=== PATIENT | male | born 1990 | race Caucasian/White ===

== ENCOUNTER 2025-02-28 12:36 | Emergency (ER) | payer MEDICAID ==
[~2025-02-28] VITALS: Ht 162.6 cm; Wt 86.0 kg
--- NOTE | 2025-02-28 18:07 | Physician Documentation ---
HPI ~ General Chief Complaint: Medication Request Stated Complaint: MED REQUEST Time Seen by MD: 16:56 Mode of Arrival: Ambulatory History of Present Illness HPI Comments Patient is seen today stating he needs a refill of the Lasix and potassium. Patient states he does not have a primary care provider and states his legs are swelling in his legs were always more fallen on the right side. Patient does admit to illicit drug use. Patient currently denies any chest pain or shortness of breath or abdominal pain or nausea, vomiting, diarrhea. Patient has no other concern or complaint at this time. Medication Reconciliation Allergies: Coded Allergies: erythromycin base (Verified Allergy, Unknown, 02/28/25) Review of Systems Constitutional: Denies: chills, fever, weakness Eyes: Denies: pain, blurred vision ENT: Denies: ear pain, nose pain, throat pain, mouth pain Respiratory: Denies: cough, shortness of breath Cardiovascular: Denies: chest pain, palpitations Gastrointestinal: Denies: abdominal pain, nausea, vomiting Genitourinary: Denies: burning, dysuria Male Genitalia: Denies: penile discharge, testicular pain Neurological: Denies: headache, dizziness Musculoskeletal: Denies: pain, swelling Integumentary: Denies: rash, lesions Allergic/Immunologic: Denies: hives, itching Hematologic/Lymphatic: Denies: no symptoms reported Psychiatric: Denies: depression, anxiety Physical Exam Physical Exam Vital Signs: Heart Rate: 83, Respiratory Rate: 18, BP: 160/107, Pulse Oximetry: 100, Weight: 86.000 Oxygen Flow Rate: 0 Physical Exam General: Awake and Alert, no acute distress. HEENT: Conjunctiva pink, Sclera clear, Mucus Membranes moist. Neck: Supple without masses and tenderness. Resp: Unlabored. Lungs clear to auscultation bilaterally. Heart: Regular Rate and rhythm, normal S1 and S2 without murmur, rub or gallop. Abdomen: Soft and non tender no organomegaly Extremities: No cyanosis,clubbing, patient does have bilateral lower extremity edema worse on the right side. Skin: Warm and Dry. Progress Results/Orders Results/Orders Vital Signs 02/28/25 02/28/25 02/28/25 12:49 16:17 16:18 Pulse 98 83 Resp 18 18 B/P (MAP) 128/71 160/107 (124) Pulse Ox 100 100 O2 Flow Rate 0 Medical Decision Making Findings Patient is seen today stating he needs a refill of the Lasix and potassium. Patient states he does not have a primary care provider and states his legs are swelling in his legs were always more fallen on the right side. Patient does admit to illicit drug use. Patient currently denies any chest pain or shortness of breath or abdominal pain or nausea, vomiting, diarrhea. Patient has no other concern or complaint at this time. Patient was given prescription for Lasix 40 mg one tab once a day for one month along with potassium tablets to be taken daily. Patient strongly advised to establish care with primary care provider. Return to ED with any worsening, concerning or changing symptoms. Departure Disposition: HOME / SELF CARE / HOMELESS Impression: Primary Impression: Bilateral lower extremity edema Condition: Stable Discharge Instructions: Medicine Refill at the Emergency Department Additional Instructions: Patient was given prescription for Lasix 40 mg one tab once a day for one month along with potassium tablets to be taken daily. Patient strongly advised to establish care with primary care provider. Return to ED with any worsening, concerning or changing symptoms. Referrals: NO PRIMARY CARE PROVIDER (PCP) Prescriptions Potassium Chloride (Klor-Con) 10 Meq Tab.prt.sr 1 TAB PO DAILY for 30 Days, #30 TAB Prov: AISHA BACA 02/28/25 Furosemide (LASIX) 40 Mg Tablet 1 TAB PO DAILY for 30 Days, #30 TAB 0 Refills Prov: AISHA BACA 02/28/25 Signature Scribe Signature: No scribe Attestation: No scribe AISHA BACA PAC Feb 28, 2025 18:07
[2025-02-28] MEDS ORDERED: POTA-192 PO (18:11)
[2025-02-28] MEDS ORDERED: FURO-149 PO (18:11)
[2025-02-28 18:27] VITALS: BP 169/106; PULSE 89; RESP 18; O2SAT 100
== END 2025-02-28 18:26 | disposition home or self-care (01) ==
LOC: ER 12:37
DX: R60.0 Localized edema (principal); Z76.0 Encounter for issue of repeat prescription; Z88.1 Allergy status to other antibiotic agents
CPT/HCPCS: 99284

== ENCOUNTER 2025-03-22 08:28 | Emergency (ER) | payer OTHER ==
[~2025-03-22] VITALS: Ht 182.9 cm; Wt 70.0 kg
[~2025-03-22 08:28] MED LIST: DIVA-76 PO; INSU100I57 SQ; LANTUS SUBCUT; PRAZ5CAP2 PO; SODI1TAB2 PO; ZIPR20CA12 PO; gabapentin capsule PO
[2025-03-22 08:40] VITALS: TEMP 98.3
--- NOTE | 2025-03-22 08:44 | ELECTROCARDIOGRAPH REPORT ---
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
[2025-03-22 09:20] LABS: MEAN PLATELET VOLUME 7.7 FL (7.4-10.4); RED CELL DISTRIBUTION WIDTH 15.5 % (11.5-14.5)
--- NOTE | 2025-03-22 09:25 | RADIOLOGY REPORT ---
CHEST RADIOGRAPH Indication: CP Technique: Single frontal view of the chest was obtained Comparison: DI CHEST,SINGLE VIEW on DOS: 03/13/25 FINDINGS: Lines and Tubes: None Lungs: No focal consolidation. Pleura: No effusion. No pneumothorax. Cardiomediastinal contours: Unremarkable Bones: No acute osseous abnormality. IMPRESSION: No acute cardiopulmonary disease.
[2025-03-22 09:33] LABS: CREATININE 1.71 MG/DL (0.60-1.10); PRO BRAIN NATRIURETIC PEPTIDE 174 PG/ML (0-125); TOTAL CARBON DIOXIDE 27.8 MMOL/L (24-32); eCRCL 59 ML/MIN; eGFR 46 ML/MIN
--- NOTE | 2025-03-22 09:50 | RADIOLOGY REPORT ---
EXAM: CT CT HEAD INDICATION: Syncope, head injury TECHNIQUE: CT of the head without intravenous contrast. Coronal and sagittal reformatted images are s ubmitted. Radiation Dose : 1. Head: CT Dose: CTDI volume is 65.7 mGy. Dose-length product is 1235.4 mGy*cm The dose indicators for CT are the volume Computed Tomography (CT) Dose Index (CTDIvol) and the Dose Length Product (DLP), and are measured in units of mGy and mGy-cm, respectively. These indicators are not patient dose, but values generated from the CT scanner acquisition factors. The report includes radiation exposure data for exposures received during this examination. All CT scans at this medical facility are performed using dose modulation techniques as appropriate to a performed exam including the following: Automated exposure control was utilized; adjustment of the MA and/or KV according to patient size; and use of iterative reconstruction technique. COMPARISON: CT CT HEAD on DOS: 03/13/25 FINDINGS: There is no evidence of acute intracranial hemorrhage, extra-axial collection, mass effect, midline s hift, herniation or hydrocephalus. CSF density structure in the left middle cranial fossa measuring 3.4 x 2.2 cm. The ventricles, sulci and cisterns are age appropriate. The gutierres-white differentiation is intact. The visualized paranasal sinuses and mastoid air cells are clear. Hazy density in the left vitreous body posterior to the ocular lens. No depressed calvarial fracture. The surrounding soft tissues are unremarkable. IMPRESSION: 1. No acute intracranial abnormality. 2. Stable 3.2 cm CSF density structure in the left middle cranial fossa probably reflecting a subarac hnoid cyst. 3. Hazy density in the vitreous body of the left eye. Correlation with ocular examination is recomme nded.
--- NOTE | 2025-03-22 11:07 | Physician Documentation ---
History of Present Illness ~ Chief Complaint: Syncope Stated Complaint: FALL/ HEAD INJURY Time Seen by MD: 08:51 Source: patient, EMS, EMS notes reviewed Mode of Arrival: EMS Exam Limitations: clinical condition HPI Chief Complaint: Passed out Caveat: Patient's mental status is altered Independent Historians: Paramedics History of Present Illness: Patient is a 35-year-old man who was staying at the [place] with his brother. Patient states that he was talking to his brother when he passed out falling and striking his head. Patient complains of a headache. History is limited because the patient is very somnolent. Patient denies drug use. Patient denies meth use. Patient states that he is tired because he did not sleep last night. When asked why he could not tell me. Review of systems: All systems were reviewed and are negative except for what is indicated in the history of present illness. Past Medical History: Bipolar illness Past Surgical History: Unknown Social History: Denies alcohol use, denies drug use, smokes tobacco Medications: Reviewed as documented Nursing Notes Allergies: Reviewed as documented in Nursing Notes Medication Reconciliation Allergies: Coded Allergies: erythromycin base (Verified Allergy, Unknown, 03/13/25) lithium (Verified Allergy, Unknown, 03/13/25) Uncoded Allergies: BENEDRYL (Allergy, Unknown, 03/13/25) Scheduled Divalproex Sodium DR* (Depakote DR*), 1 TAB PO BID, (Reported) Insulin Glargine,Hum.rec.anlog* (Lantus*), 40 UNITS SUBCUT BID Insulin Lispro (Insulin Lispro Jacques Kwikpen), SQ ACHS, (Reported) Prazosin HCl (Prazosin HCl), 1 CAP PO HS, (Reported) Sodium Chloride (SODIUM CHLORIDE tablet), 1 TAB PO QID, (Reported) Ziprasidone Hcl (Ziprasidone Hcl), 1 CAP PO BID, (Reported) [gabapentin capsule], 300 MG PO BID Discontinued Medications Furosemide (Lasix), 1 TAB PO DAILY, (Reported) Gabapentin (Gabapentin), 1 TAB PO QID, (Reported) Potassium Chloride (Potassium Chloride), 1 TAB PO DAILY, (Reported) Quetiapine Fumarate* (Seroquel*), 1 TAB PO HS, (Reported) Review of Systems All Other Systems at this time: Reviewed and Negative ROS Patient denies any other acute symptoms other than above. All other systems are negative Physical Exam Vital Signs: RN Vital Signs have been reviewed: Yes, Temperature: 98.3, Source: Oral, Heart Rate: 87, Respiratory Rate: 14, BP: 128/82, Pulse Oximetry: 95, Weight: 70.000 Oxygen Flow Rate: 0 Pulse Oximetry Reflects: adequate oxygenation Physical Exam General Appearance: No distress, sleeping, arousable, somnolent HEENT: Normal OP, moist oral mucosa, PERRL, EOMI, abrasions to the left forehead Neck: supple, normal ROM, trachea midline Pulmonary: No respiratory distress, CTA, BS equal Cardiac: RRR, no murmur, rub or gallop, GI: nondistended, soft, nontender, normal bowel sounds, no guarding, no rebound Extremities: normal ROM, no swelling, non-tender Skin: intact, dry, warm, no rashes Neuro: Somnolent, slurred speech, no focal motor weakness, moving all extremities Psych: Unable to assess, responds to questions appropriately Progress Results/Orders Results/Orders Orders - FERNANDEZ WICK MD Chest,Single View (03/22/25 08:38) Monitor (03/22/25 08:38) Saline Lock (03/22/25 08:38) Oxygen (03/22/25 08:38) Ct Head (03/22/25 09:25) Po Challenge (03/22/25 15:01) Gait Test (03/22/25 15:01) Completed Orders - FERNANDEZ WICK MD Chest,Single View (03/22/25 08:38) Cbc/Diff (03/22/25 08:38) BMP (03/22/25 08:38) PBNP (03/22/25 08:38) Electrocardiogram (03/22/25 08:38) Hs Troponin I W Calculations (03/22/25 08:38) Hs Troponin I W Calculations (03/22/25 10:38) Hs Troponin I W Calculations (03/22/25 11:38) Ct Head (03/22/25 09:25) Potassium Cl Sr Tablet (K-Dur Tablet) (03/22/25 11:00) Ringers Solution, Lacted (Lactated Ringe (03/22/25 11:00) Drug Screen, Urine (03/22/25 11:11) Valproate (03/22/25 08:59) Ethanol (03/22/25 08:59) Medications Received in ER Medications (Trade) Dose Ordered Sig/Misti Route PRN Reason Start Time Stop Time Status Last Admin Dose Admin (K-DUR tablet) 40 meq ONCE ONCE PO 03/22/25 11:00 03/22/25 11:01 DC 03/22/25 11:53 40 MEQ (lactated ringers solution) 1,000 ml ONCE ONCE IV 03/22/25 11:00 03/22/25 11:10 DC 03/22/25 11:53 1,000 ML Vital Signs 03/22/25 03/22/25 03/22/25 03/22/25 08:40 09:04 09:08 10:15 Temp 98.3 Pulse 89 92 87 Resp 15 13 14 B/P (MAP) 117/81 121/81 (94) 128/82 (97) Pulse Ox 97 98 95 O2 Flow Rate 0 0 0 03/22/25 03/22/25 13:28 14:50 Pulse 88 86 Resp 14 15 B/P (MAP) 114/76 (89) 129/79 (96) Pulse Ox 98 95 O2 Flow Rate 0 0 Laboratory Tests Test 03/22/25 08:59 03/22/25 10:57 03/22/25 11:48 03/22/25 14:47 White Blood Count 7.8 Red Blood Count 3.24 L Hemoglobin 9.1 L Hematocrit 26.5 L Mean Corpuscular Volume 81.7 Mean Corpuscular Hemoglobin 28.1 Mean Corpuscular Hemoglobin Concent 34.3 Red Cell Distribution Width 15.5 H Platelet Count 394 Mean Platelet Volume 7.7 Neutrophils (%) (Auto) 40.1 L Lymphocytes (%) (Auto) 39.7 Monocytes (%) (Auto) 15.4 H Eosinophils (%) (Auto) 4.0 Basophils (%) (Auto) 0.8 Neutrophils # (Auto) 3.2 Lymphocytes # (Auto) 3.1 Monocytes # (Auto) 1.2 H Eosinophils # (Auto) 0.3 Basophils # (Auto) 0.1 CBC Comment Sodium Level 133 L Potassium Level 3.2 L Chloride Level 97 L Carbon Dioxide Level 27.8 Anion Gap 8 Blood Urea Nitrogen 33 H Creatinine 1.71 H Estimated GFR/1.73 m2 46 BUN/Creatinine Ratio 19.3 Glucose Level 273 H Calcium Level 7.4 L Troponin I High Sensitivity 7 7 8 Pro-B-Type Natriuretic Peptide 174 H Albumin 2.1 L Chemistry Comments Valproic Acid (Depakene) Level 29 L Ethyl Alcohol Level < 10 Troponin I High Sens Percent Delta 0 14 Troponin I Hi Sens Absolute Change 0 1 Urine Opiates Screen Negative Urine Methadone Screen Negative Urine Fentanyl Screen Negative Urine Barbiturates Screen Negative Urine Phencyclidine Screen Negative Urine Amphetamines Screen Positive Urine Benzodiazepines Screen Negative Urine Cocaine Screen Negative Urine Cannabinoids Screen Negative Drug Screen Comment Medical Decision Making Findings Differential diagnosis includes but is not limited to: EKG independent interpretation: Performed at 8:43 a.m.. Normal sinus rhythm, heart rate 88, normal axis, normal ST segments Chest x-ray, single view, indication: Syncope Independent interpretation: Lungs are clear, normal mediastinum, normal cardiac silhouette, no acute cardiopulmonary process. Head CT without IV contrast, indication: Trauma, syncope Impression: 1. No acute intracranial abnormality. 2. Stable 3.2 cm CSF density structure in the left middle cranial fossa probably reflecting a subarachnoid cyst. 3. Hazy density in the vitreous body of the left eye. Correlation with ocular examination is recommended. Laboratory data independent interpretation: CBC: Remarkable for moderate anemia with a hemoglobin of 9.1 which is just below his baseline. CMP: Mild hypokalemia with a potassium of 3.2, mild worsening of his chronic renal insufficiency with a BUN 33 of and a creatinine of 1.71 Troponin: 7 Emergency department course/medical decision-making: Patient is somnolent. Head CT is negative acute. Patient is otherwise neurologically intact. Additional lab work will be obtained. Patient is given 1 L of IV normal saline. Patient is easily arousable. Patient's findings in the left eye are chronic. 3:30 p.m.: Patient is awake and eating. Patient is in no distress. He has been hemodynamically stable. Patient states that he was just very tired and that his meds had not worn off yet. Patient states that he has passed out before and that they are given very little time to sleep at the [place]. Patient has no complaints at this time. Patient is stable for discharge. Departure Time of Disposition: 15:48 Disposition: 01 HOME / SELF CARE / HOMELESS Impression: Primary Impression: Syncope Qualified Codes: R55 - Syncope and collapse Additional Impressions: Dehydration Hypokalemia Condition: Stable Discharge Instructions: Dehydration, Elderly, [id number], Syncope, Adult Additional Instructions: FOLLOW UP WITH YOUR PRIMARY CARE DOCTOR NEEDED Education Educated: Patient Educated regarding: diagnosis, treatment, need for follow up Signature Scribe Signature: No scribe Attestation: No scribe FERNANDEZ WICK MD Mar 22, 2025 11:07
[2025-03-22 11:40] LABS: ETHANOL < 10 MG/DL (<10)
[2025-03-22 11:53] LABS: VALPROATE 29 UG/ML (50-100)
[2025-03-22] MEDS: potassium Cl 20 mEq SR tablet PO ONE (11:53)
[2025-03-22] MEDS: ringers solution, lactated 1000ml IV soln IV ONE (11:53)
[2025-03-22 15:26] LABS: URINE AMPHETAMINE SCREEN POSITIVE (Neg); URINE BARBITUATE SCREEN NEGATIVE (Neg); URINE BENZODIAZEPINES SCREEN NEGATIVE (Neg); URINE CANNABINOID SCREEN NEGATIVE (Neg); URINE COCAINE SCREEN NEGATIVE (Neg); URINE METHADONE SCREEN NEGATIVE (Neg); URINE OPIATE SCREEN NEGATIVE (Neg); URINE PHENCYCLIDINE SCREEN NEGATIVE (Neg)
[2025-03-22 16:10] VITALS: BP 117/87; PULSE 87; RESP 19; O2SAT 97
== END 2025-03-22 16:13 | disposition home or self-care (01) ==
LOC: ER 08:29
DX: R55 Syncope and collapse (principal); E86.0 Dehydration; E87.6 Hypokalemia; F31.9 Bipolar disorder, unspecified; R06.02 Shortness of breath; Z88.1 Allergy status to other antibiotic agents; Z88.8 Allergy status to other drugs, medicaments and biological substances; Z79.899 Other long term (current) drug therapy
CPT/HCPCS: 36415; 70450; 71045; 80048; 80164; 80305; 80320; 83880; 84484; 85025; 93005; 96360; 96361; 99285; J7120

== ENCOUNTER 2025-04-11 22:29 | Inpatient (IN) | payer OTHER ==
[~2025-04-11] VITALS: Ht 182.9 cm; Wt 85.9 kg
[~2025-04-11 22:29] MED LIST changes: +DIVA-134 PO; -DIVA-76 PO
--- NOTE | 2025-04-11 22:39 | Physician Documentation ---
History of Present Illness ~ Chief Complaint: Hyperglycemia Stated Complaint: HYPERGLYCEMIA Time Seen by MD: 22:34 OK to notify your PCP?: Yes Source: patient, RN/MD, EMS, RN notes reviewed, EMS notes reviewed, old records Mode of Arrival: EMS Exam Limitations: no limitations HPI 35 year old male with a history of type one DM presents to the emergency department via EMS fir complaints of hyperglycemia that began last night. EMS state that last night patients insulin pen broke and he has had trouble receiving a replacement. Per EMS when they took his glucose level their meter read it as extremely high which means it exceeds 600. Patient is currently complaining of a screaming headache with nausea and vomiting when he tries to eat. Medication Reconciliation Allergies: Coded Allergies: erythromycin base (Verified Allergy, Unknown, 03/13/25) lithium (Verified Allergy, Unknown, 03/13/25) Uncoded Allergies: BENEDRYL (Allergy, Unknown, 03/13/25) Scheduled Divalproex Sodium DR* (Depakote DR*), 1 TAB PO BID, (Reported) Insulin Glargine,Hum.rec.anlog* (Lantus*), 40 UNITS SUBCUT BID Insulin Lispro (Insulin Lispro Jacques Kwikpen), SQ ACHS, (Reported) Prazosin HCl (Prazosin HCl), 1 CAP PO HS, (Reported) Sodium Chloride (SODIUM CHLORIDE tablet), 1 TAB PO QID, (Reported) Ziprasidone Hcl (Ziprasidone Hcl), 1 CAP PO BID, (Reported) [gabapentin capsule], 300 MG PO BID Past Medical History Past Medical History: Seizures, Diabetes, Bipolar Past Surgical History: cholecystectomy Smoking Status: Current every day smoker Alcohol Use: None Drug Use: none Review of Systems All Other Systems at this time: Reviewed and Negative ROS As stated above in the HPI, otherwise all systems are reviewed and negative. Physical Exam Vital Signs: RN Vital Signs have been reviewed: Yes, Temperature: 98.8, Source: Oral, Heart Rate: 100, Respiratory Rate: 20, BP: 152/72, Pulse Oximetry: 100, Weight: 99.800 Pulse Oximetry Reflects: adequate oxygenation Physical Exam General: The patient is well developed, well nourished, nontoxic appearing and is in no acute distress. Skin: [place], warm and dry with no rashes. HEENT: Dry mucous membranes. Head was normocephalic and atraumatic. Eyes - pupils equal, round, reactive to light and accommodation. Extraocular movements were intact. Conjunctivae were nonicteric. Ears - bilateral tympanic membranes were normal. The mouth and oropharynx were clear. There were no pharyngeal exudates or erythema. Neck: Supple and nontender. There was no jugular venous distention, lymphadenopathy, thyromegaly or masses. Chest: Clear to auscultation bilaterally without wheezes, rales or rhonchi. No accessory muscle use. No dullness to percussion. Heart: Rapid heart rate. S1, S2. No murmurs. Palpation of the chest wall was normal. No rubs or thrills. Abdomen: Soft, nontender and nondistended. Positive bowel sounds. No guarding or rebound. No hepatosplenomegaly or palpable masses. Extremities: No cyanosis, clubbing or edema. The patient moves all extremities. Pulses were equal and symmetric. Neurologic: Cranial nerves II-XII were intact. Sensation was intact to light touch throughout. Motor strength was 5/5 in all four extremities. Deep tendon reflexes were intact in both upper and lower extremities. Psychologic: The patient was oriented to person, place and time. The patient demonstrated appropriate judgement and insight. Progress Progress Note 1148: The case was discussed with the hospitalist resident at this time who was informed on the patient and kindly agreed to their admission. Results/Orders Reviewed/noted all lab results: Yes Results/Orders Orders - ADAM GASTON MD Electrocardiogram (04/11/25 22:34) Chest,Single View (04/11/25 23:02) Culture Blood (04/11/25 22:34) Monitor (04/11/25 22:34) Saline Lock (04/11/25 22:34) Mixed Venous (04/11/25 ) Page Hospitalist (04/11/25 23:40) Fill Out Med Reconciliation (04/11/25 23:40) Insulin Reg/Ns 100units/100ml (Myxredlin (04/11/25 23:45) Observation Status Start (04/11/25 23:41) Completed Orders - ADAM GASTON MD Cbc/Diff (04/11/25 22:34) Chest,Single View (04/11/25 23:02) Ethanol (04/11/25 22:34) Drug Screen, Urine (04/11/25 22:34) Lacticsepsis (04/11/25 22:34) CMP (04/11/25 22:35) MG (04/11/25 22:35) Normal Saline 1000ml (0.9% Sodium Chlori (04/11/25 22:40) Magnesium Sulf-Water 2g/50ml (Magnesium (04/11/25 23:45) Normal Saline 1000ml (0.9% Sodium Chlori (04/11/25 23:45) PHOS (04/11/25 22:37) Ua W/Microscopic, Cult If Ind (04/12/25 01:58) Medications Received in ER Medications (Trade) Dose Ordered Sig/Misti Route PRN Reason Start Time Stop Time Status Last Admin Dose Admin (0.9% sodium chloride (NS) 1000ml IV soln) 1,000 ml ONCE ONCE IVB 04/11/25 22:40 04/11/25 22:41 DC 04/11/25 22:51 1,000 ML Magnesium Sulfate 50 ml @ 25 mls/hr ONCE ONCE IV 04/11/25 23:45 04/12/25 01:44 DC 04/12/25 01:38 25 MLS/HR Insulin Human Regular 100 ml @ 5 mls/hr Q20H PRN IV Per Protocol 04/11/25 23:45 04/12/25 01:04 5 MLS/HR (0.9% sodium chloride (NS) 1000ml IV soln) 1,000 ml ONCE ONCE IVB 04/11/25 23:45 04/12/25 00:24 DC 04/11/25 23:56 1,000 ML Vital Signs 04/11/25 04/11/25 22:30 23:32 Temp 98.8 Pulse 100 101 Resp 20 16 B/P (MAP) 152/72 142/78 (99) Pulse Ox 100 97 O2 Flow Rate 0 Laboratory Tests Test 04/11/25 22:37 04/11/25 23:10 White Blood Count 6.1 Red Blood Count 3.44 L Hemoglobin 9.7 L Hematocrit 29.3 L Mean Corpuscular Volume 85.2 Mean Corpuscular Hemoglobin 28.1 Mean Corpuscular Hemoglobin Concent 33.0 Red Cell Distribution Width 16.4 H Platelet Count 217 Mean Platelet Volume 8.2 Neutrophils (%) (Auto) 54.5 Lymphocytes (%) (Auto) 31.3 Monocytes (%) (Auto) 7.4 Eosinophils (%) (Auto) 6.5 H Basophils (%) (Auto) 0.3 Neutrophils # (Auto) 3.3 Lymphocytes # (Auto) 1.9 Monocytes # (Auto) 0.5 Eosinophils # (Auto) 0.4 Basophils # (Auto) 0.0 CBC Comment Sodium Level 126 L Potassium Level 3.9 Chloride Level 93 L Carbon Dioxide Level 16.2 L Anion Gap 17 H Blood Urea Nitrogen 27 H Creatinine 1.44 H Estimated GFR/1.73 m2 56 BUN/Creatinine Ratio 18.8 Glucose Level 802 *H Lactic Acid Level 0.6 Calcium Level 7.6 L Phosphorus Level 3.9 Magnesium Level 1.7 Total Bilirubin 0.5 Aspartate Amino Transf (AST/SGOT) 31 Alanine Aminotransferase (ALT/SGPT) 31 Alkaline Phosphatase 111 Total Protein 6.3 L Albumin 2.4 L Globulin 3.9 Albumin/Globulin Ratio 0.6 L Chemistry Comments Ethyl Alcohol Level < 10 Venous Blood pH 7.364 Microbiology Date/Time Source Procedure Growth Status 04/11/25 22:42 Blood Hand Right Blood Culture - Preliminary NEGATIVE (LESS THAN 24 HOURS) Resulted Re-Evaluation Re-Evaluation : Re-Evaluation: Improved Progress Patient was seen and examined. Patient was given reassurance. Patient missed doses of insulin because he ran out of medications. Patient presents with tachycardia and high glucose too high to read per EMS. ABG was obtained which showed pH of 7.2 which was reassuring. Laboratory work was obtained consistent with DKA. Patient received magnesium 2 g followed by an insulin drip. Also patient received fluid boluses and later the hospitalist service was contacted there was no signs of infection this was mostly due to medical noncompliance. Patient's laboratory work showed some worsening anemia with a hemoglobin of 9.7 hematocrit is 29.3 WBCs 6.1 without a left shift which was reassuring. Chemistry however showed pseudohyponatremia with a sodium of 126 potassium 3.9 chloride 93 with CO2 of 16.2 consistent with a metabolic acidosis. BUN elevated at 27 creatinine 1.44 around the patient's baseline. Patient's anion gap is elevated at 17. Glucose was 802. Patient's calcium is also low at 7.6 and a lactic acid of 0.6. Patient's tox screen and alcohol were negative urinalysis showed glucosuria in his specific gravity of 1.005. Patient was then admitted to the hospitalist service for further workup and care. Continuous cardiac catheterization technician interpretation shows sinus tachycardia heart rate 100s, abnormal, my interpretation. Pulse oximetry monitor interpretation shows normal oxygenation at 98% room air, normal, my interpretation. EKG/XRAY/CT/US/VASC/MRI EKG : Additional Comment 2250: EDMD Gaston interpreted EKG to reveal normal sinus rhythm with bpm of 98 as well as a Qtc of 477. Patient has good r wave progression with normal axis and intervals. Chest X-Ray : Additional Comments CHEST RADIOGRAPH Indication: aloc Technique: Single frontal view of the chest was obtained Comparison: DI CHEST,SINGLE VIEW on DOS: 03/22/25, DI CHEST,SINGLE VIEW on DOS: 03/13/25 FINDINGS: Lines and Tubes: None Lungs: Bibasilar subsegmental atelectasis. Mild pulmonary vascular congestion. No focal consolidations. Pleura: No effusion. No pneumothorax. Cardiomediastinal contours: Unremarkable Bones: No acute osseous abnormality. IMPRESSION: 1. Mild pulmonary vascular congestion. No focal consolidations. Electronically Signed by:LUCERO GRAHAM MD Date & Time: 04/11/25 6633 Medical Decision Making Additional info obtained from: old records Differential Dx:Considerations: Include: Dehydration, Diabetes, Diabetic coma, DKA, Electrolyte abnormality, Encephalopathy, Gastritis, Hepatitis, Hyperglyc emia, Hyperosmolar state, Pancreatitis, Pyelonephritis, UTI, Other Departure Time of Disposition: 23:48 Disposition: ADMITTED INPATIENT Admitted to Inpatient Unit: yes, to hospitalist Admission Level of Care: PCU with Tele Impression: Primary Impression: DKA (diabetic ketoacidosis) Qualified Codes: E10.10 - Type 1 diabetes mellitus with ketoacidosis without coma Additional Impressions: Psuedo-hyponatremia Metabolic acidosis Condition: Guarded Referrals: NO PRIMARY CARE PROVIDER (PCP) Education Educated: Patient Educated regarding: diagnosis, treatment, prognosis Critical Care Note Total Time (mins): 30 Critical Care Note The very real possibility of a deterioration of this patient's condition required the highest level of my preparedness for sudden, emergent intervention. I provided critical care services, which included medication orders, frequent reevaluations of the patient's condition and response to treatment, ordering and reviewing test results, and discussing the case with various consultants. Excludes time spent performing separately billable procedures. The critical care time associated with the care of the patient was 30 minutes. Signature Scribe Signature: Scribed for Adam Gaston MD by Jun Anne . 04/11/25 22:58 Attestation: The note accurately reflects work and decisions made by me.Adam Gaston MD 04/11/25 22:39 ADAM GASTON MD Apr 11, 2025 22:39 JUN LOONEY Apr 11, 2025 22:58
[2025-04-11 22:50] LABS: MEAN PLATELET VOLUME 8.2 FL (7.4-10.4); RED CELL DISTRIBUTION WIDTH 16.4 % (11.5-14.5)
[2025-04-11] MEDS: normal saline 1000ML IV soln IVB ONE ×2 (22:51→23:56)
[2025-04-11 23:15] LABS: CREATININE 1.44 MG/DL (0.60-1.10); ETHANOL < 10 MG/DL (<10); TOTAL CARBON DIOXIDE 16.2 MMOL/L (24-32); eCRCL 78 ML/MIN; eGFR 56 ML/MIN
--- NOTE | 2025-04-11 23:21 | RADIOLOGY REPORT ---
CHEST RADIOGRAPH Indication: aloc Technique: Single frontal view of the chest was obtained Comparison: DI CHEST,SINGLE VIEW on DOS: 03/22/25, DI CHEST,SINGLE VIEW on DOS: 03/13/25 FINDINGS: Lines and Tubes: None Lungs: Bibasilar subsegmental atelectasis. Mild pulmonary vascular congestion. No focal consolidatio ns. Pleura: No effusion. No pneumothorax. Cardiomediastinal contours: Unremarkable Bones: No acute osseous abnormality. IMPRESSION: 1. Mild pulmonary vascular congestion. No focal consolidations.
[2025-04-12] VITALS (9 sets, daily range): BP systolic 120–152; BP diastolic 63–95; PULSE 82–94; RESP 16–18; TEMP 97.1–98.3; O2SAT 97–99
[2025-04-12] MEDS ORDERED: potassium Cl 40MEQ/1/2NS 520ml 520 ML IV PRN (00:50)
[2025-04-12] MEDS ORDERED: magnesium sulf-water 2g/50mL 50 ML IV PRN ×2 (00:50→01:40)
[2025-04-12] MEDS ORDERED: potassium Cl 40MEQ/270ML bag 270 ML IV PRN ×2 (00:50→01:40)
[2025-04-12] MEDS ORDERED: sodium phosphate inj. 15 MMOL in dextrose 5%-water 250 ML IV PRN ×2 (00:50→01:40)
[2025-04-12] MEDS: Insulin Reg/NS 100units/100mL 100 ML IV PRN (01:04)
[2025-04-12] MEDS: potassium Cl 40MEQ/1/2NS 520ml 520 ML IV ONE (01:20)
[2025-04-12] MEDS: ringers solution, lacted 1,000 ML IV SCH ×4 (01:27→12:12)
[2025-04-12] MEDS: magnesium sulf-water 2g/50mL 50 ML IV ONE (01:38)
[2025-04-12 01:40] LABS: PHOSPHORUS 3.9 MG/DL (2.3-4.5)
[2025-04-12] MEDS ORDERED: HYDROcodone/acetaminophen 5mg/325mg tablet PO PRN (01:40)
[2025-04-12] MEDS ORDERED: dextrose 50%-water 50ml dispensing syringe IV PRN ×2 (01:40→11:50)
[2025-04-12] MEDS ORDERED: magnesium Cl slow-release 64mg tablet PO PRN (01:40)
[2025-04-12] MEDS ORDERED: ondansetron/PF 4mg/2ml inj IV PRN (01:40)
[2025-04-12] MEDS ORDERED: magnesium sulf-water 4G/100mL 100 ML IV PRN (01:40)
[2025-04-12] MEDS ORDERED: mag hydrox/Alum hydrox/simeth 30ml oral suspension PO PRN (01:40)
[2025-04-12] MEDS ORDERED: magnesium hydroxide 30ml (MOM) UD suspension PO PRN (01:40)
[2025-04-12] MEDS ORDERED: potassium Cl 20 mEq SR tablet PO PRN ×2 (01:40)
[2025-04-12] MEDS: potassium Cl 40MEQ/1/2NS 520ml 520 ML IV PRN ×2 (02:02→10:21)
[2025-04-12 02:35] LABS: LEUKOCYTE ESTERASE ,URINE NEGATIVE (Neg); NITRITES, URINE NEGATIVE (Neg); OCCULT BLOOD,URINE TRACE-INTACT (Neg)
--- NOTE | 2025-04-12 02:35 | HISTORY AND PHYSICAL-Residence ---
History & Physical Providers to CC Resident Creating Document: BEATRIZ PARRA, RES CC: RICHARD GILBERT MD ~ History of Present Illness Reason for Admit\Complaint: Abdominal pain, nausea and vomitings since two days History of Present Illness A 35-year-old male who is a poor historian and non cooperative with a past medical history of insulin-dependent diabetes mellitus type 1 in bipolar disorder presented to the ED in view of abdominal pain in the umbilical region with a severity of 3/10, squeezing in type and no radiation since the last two days. Patient has associated nausea and vomitings with multiple episodes over the last two days. Patient vomited everything that he ate. Patient states that he ran out of his insulin medication for one day as his friend broke his insulin bottle. Patient denies any other symptoms, fever, chills, burning micturition. Allergies: Coded Allergies: erythromycin base (Verified Allergy, Unknown, 03/13/25) lithium (Verified Allergy, Unknown, 03/13/25) Uncoded Allergies: BENEDRYL (Allergy, Unknown, 03/13/25) Home Medications Home Medications Active [gabapentin capsule] 300 MG Capsule 300 Mg PO BID 30 Days Lantus* (Insulin Glargine) 100 Unit/1 Ml Vial 40 Units SUBCUT BID 30 Days Reported Insulin Lispro Jacques Kwikpen (Insulin Lispro) 100 Unit/Ml Ins.pen.hf SQ ACHS Ziprasidone Hcl 20 Mg Capsule 1 Cap PO BID 30 Days SODIUM CHLORIDE tablet (Sodium Chloride) 1,000 Mg Tablet 1 Tab PO QID 30 Days Prazosin HCl 5 Mg Capsule 1 Cap PO HS [address]* (Divalproex Sodium) 500 Mg Tablet.dr 1 Tab PO BID Past Medical History Past Medical History Insulin-dependent diabetes mellitus type 1 on insulin Lantus 36 units Bipolar Borderline personality disorder Seizures Past Surgical History Surgical History Comment Cholecystectomy Past Social History Social History Comment Patient smokes 1.5 packs of cigarettes per day since the age of 12 Uses meth Does not consume alcohol and marijuana Patient is homeless and does not have a primary care provider Alcohol Use: None Drug Use: None ROS ROS All other systems reviewed in full and negative except for the pertinent positives mentioned in the HPI Exam Vitals: Vital Signs Date Time Temp Pulse Resp B/P (MAP) Pulse Ox O2 Delivery O2 Flow Rate FiO2 04/11/25 23:32 101 16 142/78 (99) 97 0 04/11/25 22:30 98.8 General: General: Alert, awake, oriented, not in acute distress HEENT: PERRLA, no icterus, pallor, lymphadenopathy, carotid bruit, eroded brownish discolored her teeth, lost some of his teeth Respiratory system: Bilateral vesicular breath sounds heard, no adventitious breath sounds CVS: S1-S2 heard, no murmurs/rubs/gallop GI: Epigastric tenderness, Soft, no organomegaly, no guarding/rigidity, bowel sounds present Neuro: No focal neurological deficits present Extremities: No edema cyanosis clubbing/deformities,: MARGARITA, fungal nails on the lower extremity Skin: Warm and dry Diagnostic Data Last Recorded Lab Results: 04/12/25 0743 04/12/25 1132 Advance Care Planning Advanced Care plannin - 30 Minutes (I spent 20 minutes discussing various resuscitative measures and the patient decided to be full code) Additional Plan Assessment: A 35-year-old male with a past medical history of insulin-dependent diabetes mellitus type 1 presented to the ED in view of abdominal pain nausea and vomitings. Patient was found to have elevated blood sugars in the ED along with acidosis and anion gap. Patient is admitted for the evaluation management of DKA. Plan: DKA IDDM type 2, uncontrolled Metabolic acidosis Elevated blood sugars, anion gap: 17, normal lactic acid A1c: 10.6 in February, On DKA protocol Stop insulin once anion gap closes, simultaneously start D5 half-normal saline of the patient's blood glucose falls below 200 Switch to hyper/hypoglycemia protocol after stabilization of anion gap, blood sugars Continue to monitor blood sugars Prerenal MARGARITA probably secondary to renal tubular stasis Elevated BUN and creatinine Continue IV fluids Continue to monitor BMP Hypertonic hyponatremia Probably secondary to elevated blood sugars Continue to monitor sodium Normocytic anemia Probably dimorphic Follow up with the iron profile and B12 Bipolar disorder Borderline personality disorder Continue ziprasidone 20 mg p.o. b.i.d., gabapentin 300 mg p.o. b.i.d. Seizures Continue Depakote 500 mg p.o. b.i.d. Code status: Full code Diet: NPO DVT prophylaxis: SCD Beatriz Parra MD Internal Medicine, PGY 2 Addendum I personally reviewed the chart, labs and imaging and reviewed the patient with the team. I agree with the assessment and plan as documented by the resident. Patient was seen through remote audio-visual assessment through HIPAA compliance setup. Date of Service: Apr 11, 2025 Billing Provider: RICHARD GILBERT MD, SIVA, RES Apr 12, 2025 02:35 RICHARD GILBERT MD Apr 13, 2025 04:08
[2025-04-12] MEDS: Insulin Reg/NS 100units/100mL 100 ML IV SCH (02:36)
[2025-04-12 02:39] LABS: UA COLLECTION TYPE VOIDED
[2025-04-12 02:42] LABS: SQUAMOUS EPITHELIAL CELL,UR FEW /LPF (FEW); URIC ACID CRYSTALS FEW /HPF (NEGATIVE)
[2025-04-12 02:48] LABS: URINE AMPHETAMINE SCREEN NEGATIVE (Neg); URINE BARBITUATE SCREEN NEGATIVE (Neg); URINE BENZODIAZEPINES SCREEN NEGATIVE (Neg); URINE CANNABINOID SCREEN NEGATIVE (Neg); URINE COCAINE SCREEN NEGATIVE (Neg); URINE METHADONE SCREEN NEGATIVE (Neg); URINE OPIATE SCREEN NEGATIVE (Neg); URINE PHENCYCLIDINE SCREEN NEGATIVE (Neg)
[2025-04-12 04:15] LABS: ABG BASE EXCESS -5.7 mmol/L (-2.0-3.0); ABG HCO3 18.8 mmol/L (21.0-28.0); ABG OXYGEN SATURATION 96.0 % (94.0-98.0); ABG PCO2 (T) 33.2 mmHg (35.0-48.0); ABG PH (T) 7.371 (7.350-7.450); ABG PO2 (T) 83.2 mmHg (83.0-108.0); ALLEN'S TEST POSITIVE; FCOHb 1.6 % (0.5-1.5); FHHb 3.9 % (0.0-5.0); FIO2 21.0 mmHg/%; FMetHb 0.3 % (0.0-1.5); FO2Hb 94.2 % (94.0-98.0); MODE ROOM AIR; PATIENT TEMPERATURE 37.0; TOTAL HEMOGLOBIN 10.2 G/dl (13.5-17.5)
[2025-04-12 04:54] LABS: OSMOLALITY 305 MOSM/K (280-300)
[2025-04-12 05:04] LABS: CREATININE 1.39 MG/DL (0.60-1.10); TOTAL CARBON DIOXIDE 20.7 MMOL/L (24-32); eCRCL 81 ML/MIN; eGFR 58 ML/MIN
[2025-04-12 05:30] LABS: PHOSPHORUS 2.7 MG/DL (2.3-4.5)
--- NOTE | 2025-04-12 06:41 | ELECTROCARDIOGRAPH REPORT ---
[facility] Test Date: 2025-04-11 Test Time: 22:50:06 Pat Name: RAMILA MADERA Department: EMERGENCY ROOM Room: [address] Gender: M Lube Worker: CHRIS : 1990 Requested By: FLORENCIA FUNK Order Number: [id number] Reading MD: Dr. Florencia Funk Measurements Intervals [place] Rate: 98 P: 40 [place]: 166 QRS: 43 QRSD: 98 T: 63 QT: 373 QTc: 477 Interpretive Statements Sinus rhythm Probable left atrial enlargement Abnormal R-wave progression, early transition Borderline prolonged QT interval Electronically Signed On 04-12-2025 6:49:[address] Florencia Funk Please click the below link to view image of tracing.
[2025-04-12] MEDS ORDERED: GABAPENTIN 300 MG PO SCH (08:00)
[2025-04-12] MEDS: K and/or MAG REPLACEMENT MC SCH (08:00)
[2025-04-12] MEDS: divalproex sodium 500mg tablet.DR PO SCH (08:08)
[2025-04-12] MEDS: docusate sod 100mg capsule PO SCH (08:08)
[2025-04-12 08:48] LABS: MEAN PLATELET VOLUME 8.5 FL (7.4-10.4); RED CELL DISTRIBUTION WIDTH 15.9 % (11.5-14.5)
[2025-04-12 09:02] LABS: % IRON SATURATION 36 % (11-46); CREATININE 1.01 MG/DL (0.60-1.10); PHOSPHORUS 3.0 MG/DL (2.3-4.5); TOTAL CARBON DIOXIDE 23.5 MMOL/L (24-32); eCRCL 111 ML/MIN; eGFR 84 ML/MIN
[2025-04-12] MEDS: magnesium sulf-water 2g/50mL 50 ML IV PRN (10:21)
[2025-04-12] MEDS ORDERED: DEXTROSE 15 GM of carb/4 tabs (each vial/BOTTLE has 4 tablets) PO PRN (11:50)
[2025-04-12] MEDS ORDERED: glucagon, human recombinant 1mg kit SUBCUT PRN (11:50)
--- NOTE | 2025-04-12 12:02 | PROGRESS NOTE- Residence ---
Progress Note - Resident Providers to CC Resident Creating Document: ZULY MARAVILLA RES ~ Antibiotic Timeout Antibiotic Ordered?: No Subjective Patient seen and examined at the bedside. He is still sleepy but answered questions. He denies nausea, vomiting or abdominal pain. He tolerated well liquid diet. In addition to missing insulin dose at home he also reports episodes of diarrhea, now resolved. He was on DKA protocol, discontinued today after resolution. No other symptoms reported. Objective Vital Signs Date Time Temp Pulse Resp B/P (MAP) Pulse Ox O2 Delivery O2 Flow Rate FiO2 04/12/25 06:30 95 04/12/25 06:00 97.9 16 152/95 (114) 99 Room Air 04/12/25 01:30 0 Result Diagram: 04/12/25 0743 04/12/25 0743 General: Alert, awake, oriented, not in acute distress HEENT: PERRLA, no icterus, pallor or lymphadenopathy. Eroded brownish discolored her teeth, lost some of his teeth Respiratory system: Bilateral vesicular breath sounds heard, no adventitious breath sounds CVS: S1-S2 heard, no murmurs/rubs/gallop GI: Minimal epigastric tenderness, Soft, no organomegaly, no guarding/rigidity, bowel sounds present Neuro: No focal neurological deficits present Extremities: No edema cyanosis clubbing/deformities,: MARGARITA, fungal nails on the lower extremity Skin: Warm and dry Assessment Assessment This is a 35-year-old male with a past medical history of insulin-dependent diabetes mellitus type 1 and bipolar disorder presented to the ED in view of abdominal pain in the umbilical region with a severity of 3/10, squeezing in type and no radiation since the last two days. Patient has associated nausea and vomitings with multiple episodes over the last two days, now completely resolved. Patient did not use his insulin medication for one day and present with DKA. He was treated with insulin drip, potassium and fluids, with resolution of the DKA. He was started on insulin Lantus and oral diet. Plan Plan DKA secondary to insulin noncompliance Type 1 diabetes mellitus, uncontrolled Metabolic acidosis Elevated blood sugars, anion gap: 17, normal lactic acid A1c: 10.6 in February, On DKA protocol Stop insulin once anion gap closes, simultaneously start D5 half-normal saline of the patient's blood glucose falls below 200 Switch to hyper/hypoglycemia protocol after stabilization of anion gap, blood sugars Continue to monitor blood sugars 04/12/2025 Albumin corrected anion gap: 12.8 (7:43 am) No clinical/laboratory signs of infection Discontinue insulin drip and D5 Insulin glargine 30 units IV hydration with Ringer lactate Monitor for new symptoms Prerenal MARGARITA probably secondary to renal tubular stasis BUN 27 and creatinine 1.44 at presentation Continue IV fluids Continue to monitor BMP 04/12/2025 BUN 16, creatinine 1.01 Continue IV fluids Pseudohyponatremia Probably secondary to elevated blood sugars Continue to monitor sodium 04/12/2025 Sodium 137, potassium 3.5 Normocytic anemia Probably dimorphic Follow up with the iron profile and B12 Bipolar disorder Borderline personality disorder Continue ziprasidone 20 mg p.o. b.i.d., gabapentin 300 mg p.o. b.i.d. Seizures Continue Depakote 500 mg p.o. b.i.d. Code status: Full code Diet: 75g carb diet DVT prophylaxis: SCD Disposition: Continue medical treatment. Date of Service: Apr 12, 2025 Billing Provider: SEBASTIAN REID MD Common Visit Codes: [id number] INP/OBS CARE(HIGH) ZULY MARAVILLA, RES Apr 12, 2025 12:02 SEBASTIAN REID MD Apr 12, 2025 20:47
[2025-04-12] MEDS: insulin glargine (Lantus) pen - multi-dose SQ SCH (12:16)
[2025-04-12] MEDS: INSULIN LISPRO 100 UNIT/ML INSULN.PEN MULTI-DOSE SQ SCH (12:18)
[2025-04-12 12:26] LABS: CREATININE 1.04 MG/DL (0.60-1.10); PHOSPHORUS 2.9 MG/DL (2.3-4.5); TOTAL CARBON DIOXIDE 23.1 MMOL/L (24-32); eCRCL 108 ML/MIN; eGFR 81 ML/MIN
[2025-04-12] MEDS: DEXTROSE 15 GM of carb/4 tabs (each vial/BOTTLE has 4 tablets) PO PRN (17:39)
[2025-04-12] MEDS: prazosin 5mg capsule PO SCH (20:11)
[2025-04-13] VITALS (8 sets, daily range): BP systolic 124–149; BP diastolic 78–91; PULSE 83–101; RESP 13–20; TEMP 97.6–98.5; O2SAT 96–100
[2025-04-13] MEDS: dextrose 50%-water 50ml dispensing syringe IV PRN ×2 (01:19→06:40)
[2025-04-13 06:08] LABS: MEAN PLATELET VOLUME 8.0 FL (7.4-10.4); RED CELL DISTRIBUTION WIDTH 16.1 % (11.5-14.5)
[2025-04-13 06:25] LABS: CHOL/HDL RATIO 2.5 (0.00-4.99); CREATININE 0.78 MG/DL (0.60-1.10); LDL CHOLESTEROL 56 MG/DL (50-100); TOTAL CARBON DIOXIDE 26.2 MMOL/L (24-32); eCRCL 144 ML/MIN; eGFR > 90 ML/MIN
[2025-04-13] MEDS: ringers solution, lacted 1,000 ML IV SCH (10:53)
[2025-04-13] MEDS ORDERED: QUET-1 PO (12:46)
--- NOTE | 2025-04-13 14:43 | PROGRESS NOTE- Residence ---
Progress Note - Resident Providers to CC Resident Creating Document: ZULY MARAVILLA RES ~ Antibiotic Timeout Antibiotic Ordered?: No Subjective Patient seen and examined at the bedside. The patient had hypoglycemic episodes yesterday but is tolerating oral diet without nausea or vomiting. He reports feeling tired and weak. No other symptoms at this moment. Objective Vital Signs Date Time Temp Pulse Resp B/P (MAP) Pulse Ox O2 Delivery O2 Flow Rate FiO2 04/13/25 13:22 Room Air 04/13/25 12:36 98.1 91 16 130/86 (101) 99 04/12/25 01:30 0 Result Diagram: 04/13/2533 04/13/25 05 General: Alert, awake, oriented, not in acute distress HEENT: PERRLA, no icterus, pallor or lymphadenopathy. Eroded brownish discolored her teeth, lost some of his teeth Respiratory system: Bilateral vesicular breath sounds heard, no adventitious breath sounds CVS: S1-S2 heard, no murmurs/rubs/gallop GI: Minimal epigastric tenderness, Soft, no organomegaly, no guarding/rigidity, bowel sounds present Neuro: No focal neurological deficits present Extremities: No edema cyanosis clubbing/deformities,fungal nails on the lower extremity Skin: Warm and dry Assessment Assessment This is a 35-year-old male with a past medical history of insulin-dependent diabetes mellitus type 1 and bipolar disorder presented to the ED in view of abdominal pain in the umbilical region with a severity of 3/10, squeezing in type and no radiation since the last two days. Patient has associated nausea and vomitings with multiple episodes over the last two days, now completely resolved. Patient did not use his insulin medication for one day and presented with DKA. He was treated with insulin drip, potassium and fluids, with resolution of the DKA. He was started on insulin Lantus and oral diet. He had episodes of hypoglycemia after Lantus, now resolved. The patient has discharge barriers regarding his insulin supply. Social service and case management are working on it. Plan Plan DKA secondary to insulin noncompliance Type 1 diabetes mellitus, uncontrolled Metabolic acidosis Elevated blood sugars, anion gap: 17, normal lactic acid A1c: 10.6 in February, On DKA protocol Stop insulin once anion gap closes, simultaneously start D5 half-normal saline of the patient's blood glucose falls below 200 Switch to hyper/hypoglycemia protocol after stabilization of anion gap, blood sugars Continue to monitor blood sugars 04/12/2025 Albumin corrected anion gap: 12.8 (7:43 am) No clinical/laboratory signs of infection Discontinue insulin drip and D5 Insulin glargine 30 units IV hydration with Ringer lactate Monitor for new symptoms 04/13/2025 Decrease hydration RL to 50m/h. Discontinue if ingesting high amounts of fluids. Patient had episodes of hypoglycemia because of the high dose long-acting insulin Plan is to discharge the patient home previous dose Social service consulted in order to assess discharge barriers MARGARITA most likely secondary to prerenal nephropathy - resolved BUN 27 and creatinine 1.44 at presentation Continue IV fluids Continue to monitor BMP 04/12/2025 BUN 16, creatinine 1.01 Continue IV fluids 04/13/2025 BUN 14, creatinine 0.78 Decreased IV fluids Pseudohyponatremia - resolved Probably secondary to elevated blood sugars Continue to monitor sodium 04/12/2025 Sodium 137, potassium 3.5 Normocytic anemia Possibly due to chronic disease Hemoglobin 9.6, RDW 16.1, B12 481, iron 58, TIBC 160, % saturation 36 Bipolar disorder Borderline personality disorder Continue ziprasidone 20 mg p.o. b.i.d., gabapentin 300 mg p.o. b.i.d. Seizures Continue Depakote 500 mg p.o. b.i.d. Code status: Full code Diet: 75g carb diet DVT prophylaxis: SCD Disposition: Continue medical treatment. Anticipated discharge tomorrow. Date of Service: Apr 13, 2025 Billing Provider: SEBASTIAN REID MD Common Visit Codes: [id number] INP/OBS CARE(HIGH) ZULY MARAVILLA, RES Apr 13, 2025 14:43 SEBASTIAN REID MD Apr 13, 2025 20:36
[2025-04-13] MEDS: insulin glargine (Lantus) pen - multi-dose SQ SCH (22:05)
[2025-04-14 05:00] VITALS: BP 114/73; PULSE 96; RESP 20; TEMP 98.2; O2SAT 98
[2025-04-14 05:59] LABS: MEAN PLATELET VOLUME 8.2 FL (7.4-10.4); RED CELL DISTRIBUTION WIDTH 16.2 % (11.5-14.5)
[2025-04-14 06:19] LABS: CREATININE 0.91 MG/DL (0.60-1.10); TOTAL CARBON DIOXIDE 27.3 MMOL/L (24-32); eCRCL 123 ML/MIN; eGFR > 90 ML/MIN
[2025-04-14 08:00] VITALS: RESP 18
[2025-04-14 10:00] VITALS: BP 138/82; PULSE 89; RESP 16; TEMP 98.4; O2SAT 99
[2025-04-14 18:00] VITALS: BP 117/64; PULSE 91; RESP 16; TEMP 98.8; O2SAT 98
--- NOTE | 2025-04-14 18:03 | PROGRESS NOTE- Residence ---
Progress Note - Resident Providers to CC Resident Creating Document: BELLE DANIEL RES ~ Antibiotic Timeout Antibiotic Ordered?: No Subjective Patient seen and examined at the bedside. DKA and abdominal pain resolved, he is now tolerating oral intake. He is currently homeless but deemed medically ready for discharge. Case management has been consulted to assist with discharge planning and provide necessary supplies, including a Glucometer. The patient has a CGM device but lacks sensors, so provision of a standard glucometer is essential to ensure he can regularly monitor his blood glucose levels. The support is critical to prevent complication and reduce the risk for readmission. DC tommorrow if supply is arranged. Objective Vital Signs Date Time Temp Pulse Resp B/P (MAP) Pulse Ox O2 Delivery O2 Flow Rate FiO2 04/14/25 10:00 98.4 89 16 138/82 (100) 99 04/14/25 08:00 Room Air 04/13/25 20:00 0.0 General: Alert, awake, oriented, not in acute distress HEENT: PERRLA, no icterus, pallor or lymphadenopathy. Eroded brownish discolored her teeth, lost some of his teeth Respiratory system: Bilateral vesicular breath sounds heard, no adventitious breath sounds CVS: S1-S2 heard, no murmurs/rubs/gallop GI: Minimal epigastric tenderness, Soft, no organomegaly, no guarding/rigidity, bowel sounds present Neuro: No focal neurological deficits present Extremities: No edema cyanosis clubbing/deformities,fungal nails on the lower extremity Skin: Warm and dry Result Diagram: 04/14/25 0521 04/14/25 0521 Advance Care Planning Advanced Care plannin - 30 Minutes Assessment Assessment This is a 35-year-old male with a past medical history of insulin-dependent diabetes mellitus type 1 and bipolar disorder presented to the ED in view of abdominal pain in the umbilical region with a severity of 3/10, squeezing in type and no radiation since the last two days. Patient has associated nausea and vomitings with multiple episodes over the last two days, now completely resolved. Patient did not use his insulin medication for one day and presented with DKA. He was treated with insulin drip, potassium and fluids, with resolution of the DKA. He was started on insulin Lantus and oral diet. He had episodes of hypoglycemia after Lantus, now resolved. The patient has discharge barriers regarding his insulin supply. Social service and case management are working on it. Plan Plan DKA secondary to insulin noncompliance Type 1 diabetes mellitus, uncontrolled Metabolic acidosis Elevated blood sugars, anion gap: 17, normal lactic acid A1c: 10.6 in February, On DKA protocol Stop insulin once anion gap closes, simultaneously start D5 half-normal saline of the patient's blood glucose falls below 200 Switch to hyper/hypoglycemia protocol after stabilization of anion gap, blood sugars Continue to monitor blood sugars 04/12/2025 Albumin corrected anion gap: 12.8 (7:43 am) No clinical/laboratory signs of infection Discontinue insulin drip and D5 Insulin glargine 30 units IV hydration with Ringer lactate Monitor for new symptoms 04/13/2025 Decrease hydration RL to 50m/h. Discontinue if ingesting high amounts of fluids. Patient had episodes of hypoglycemia because of the high dose long-acting insulin Plan is to discharge the patient home previous dose Social service consulted in order to assess discharge barriers 04/13/25 DKA resolved. Able to tolerate oral intake Case management has been consulted to assist with discharge planning and provide necessary supplies, including a Glucometer. The patient has a CGM device but lacks sensors, so provision of a standard glucometer is essential to ensure he can regularly monitor his blood glucose levels. The support is critical to prevent complication and reduce the risk for readmission. DC tommorrow if supply is arranged. MARGARITA most likely secondary to prerenal nephropathy - resolved BUN 27 and creatinine 1.44 at presentation Continue IV fluids Continue to monitor BMP 04/12/2025 BUN 16, creatinine 1.01 Continue IV fluids 04/13/2025 BUN 14, creatinine 0.78 Decreased IV fluids Pseudohyponatremia - resolved Probably secondary to elevated blood sugars Continue to monitor sodium 04/12/2025 Sodium 137, potassium 3.5 Normocytic anemia Possibly due to chronic disease Hemoglobin 9.6, RDW 16.1, B12 481, iron 58, TIBC 160, % saturation 36 Bipolar disorder Borderline personality disorder Continue ziprasidone 20 mg p.o. b.i.d., gabapentin 300 mg p.o. b.i.d. Seizures Continue Depakote 500 mg p.o. b.i.d. Code status: Full code Diet: 75g carb diet DVT prophylaxis: SCD Disposition: Continue medical treatment. Anticipated discharge tomorrow. Date of Service: Apr 14, 2025 Billing Provider: SEBASTIAN REID MD Common Visit Codes: [id number] INP/OBS CARE(HIGH) BELLE DANIEL, RES Apr 14, 2025 18:03 SEBASTIAN REID MD Apr 14, 2025 21:22
[2025-04-14 20:00] VITALS: RESP 18; O2SAT 96
[2025-04-15 06:07] LABS: MEAN PLATELET VOLUME 8.3 FL (7.4-10.4); RED CELL DISTRIBUTION WIDTH 16.1 % (11.5-14.5)
[2025-04-15 07:04] LABS: CREATININE 0.87 MG/DL (0.60-1.10); TOTAL CARBON DIOXIDE 25.2 MMOL/L (24-32); eCRCL 129 ML/MIN; eGFR > 90 ML/MIN
[2025-04-15 07:34] VITALS: BP 105/72; PULSE 99; RESP 20; TEMP 98.9; O2SAT 97
[2025-04-15 08:00] VITALS: RESP 18
[2025-04-15] MEDS ORDERED: gabapentin capsule PO (10:14)
[2025-04-15] MEDS ORDERED: LANTUS SQ (10:14)
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
== END 2025-04-15 17:23 | disposition home or self-care (01) | DRG 638 ==
LOC: ER 22:30 → ED HOLD 23:48 → EDBEDREQ 04-12 01:35 → PCU 3S 04-12 03:06 → SUR 3N 04-13 12:27
PROVIDERS: ADMIT Internal Medicine Sleep Medicine; ATTEND Internal Medicine
DX: E10.10 Type 1 diabetes mellitus with ketoacidosis without coma (principal); E87.1 Hypo-osmolality and hyponatremia; N17.9 Acute kidney failure, unspecified; F17.210 Nicotine dependence, cigarettes, uncomplicated; F31.9 Bipolar disorder, unspecified; F60.3 Borderline personality disorder; D64.9 Anemia, unspecified; R56.9 Unspecified convulsions; T38.3X6A Underdosing of insulin and oral hypoglycemic [antidiabetic] drugs, initial encounter; Z79.899 Other long term (current) drug therapy; Z88.1 Allergy status to other antibiotic agents; Z91.148 Patient's other noncompliance with medication regimen for other reason; Y92.89 Other specified places as the place of occurrence of the external cause
CPT/HCPCS: 36415; 36600; 71045; 80048; 80053; 80061; 80305; 80320; 81001; 82607; 82800; 82803; 82948; 83540; 83550; 83605; 83735; 83930; 83935; 84100; 85018; 85025; 87040; 87081; 93005; 96360; 99291; G0378; J1815; J3480; J3490; J7030; J7040; J7120

== ENCOUNTER 2025-05-01 08:02 | Emergency (ER) | payer MEDICAID, OTHER ==
[~2025-05-01] VITALS: Ht 182.9 cm; Wt 80.8 kg
[~2025-05-01 08:02] MED LIST changes: +LANTUS SQ; -LANTUS SUBCUT; +QUET-1 PO
[2025-05-01 08:04] VITALS: TEMP 97.7
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
[2025-05-01] MEDS ORDERED: INSU100I57 SQ (08:47)
[2025-05-01] MEDS ORDERED: ZIPR20CA12 PO (08:47)
[2025-05-01] MEDS ORDERED: PRAZ5CAP2 PO (08:47)
[2025-05-01] MEDS ORDERED: gabapentin capsule PO (08:47)
[2025-05-01] MEDS ORDERED: DIVA-134 PO (08:47)
[2025-05-01] MEDS ORDERED: QUET-1 PO (08:47)
[2025-05-01] MEDS ORDERED: SODI1TAB2 PO (08:47)
[2025-05-01] MEDS ORDERED: LANTUS SQ (08:47)
[2025-05-01 08:53] LABS: MEAN PLATELET VOLUME 7.0 FL (7.4-10.4); RED CELL DISTRIBUTION WIDTH 15.5 % (11.5-14.5)
[2025-05-01 09:19] LABS: CREATININE 1.21 MG/DL (0.60-1.10); TOTAL CARBON DIOXIDE 24.6 MMOL/L (24-32); eCRCL 93 ML/MIN; eGFR 68 ML/MIN
[2025-05-01 09:28] LABS: VALPROATE < 3.0 UG/ML (50-100)
[2025-05-01 09:29] LABS: ETHANOL < 10 MG/DL (<10)
[2025-05-01 10:22] LABS: LEUKOCYTE ESTERASE ,URINE NEGATIVE (Neg); NITRITES, URINE NEGATIVE (Neg); OCCULT BLOOD,URINE MODERATE (Neg)
[2025-05-01 10:25] LABS: UA COLLECTION TYPE VOIDED
[2025-05-01 10:29] LABS: AMORPHOUS URATES 1+; SQUAMOUS EPITHELIAL CELL,UR FEW /LPF (FEW)
[2025-05-01 10:30] LABS: FINE GRANULAR CAST 0-3 /LPF (NEGATIVE)
[2025-05-01 10:36] VITALS: BP 145/98; PULSE 81; RESP 16; O2SAT 98
[2025-05-01 11:01] LABS: URINE AMPHETAMINE SCREEN POSITIVE (Neg); URINE BARBITUATE SCREEN NEGATIVE (Neg); URINE BENZODIAZEPINES SCREEN NEGATIVE (Neg); URINE CANNABINOID SCREEN POSITIVE (Neg); URINE COCAINE SCREEN NEGATIVE (Neg); URINE METHADONE SCREEN NEGATIVE (Neg); URINE OPIATE SCREEN NEGATIVE (Neg); URINE PHENCYCLIDINE SCREEN NEGATIVE (Neg)
== END 2025-05-01 10:43 | disposition home or self-care (01) ==
LOC: ER 08:02
DX: E11.65 Type 2 diabetes mellitus with hyperglycemia (principal); Z76.0 Encounter for issue of repeat prescription; F31.9 Bipolar disorder, unspecified; M79.7 Fibromyalgia; Z90.49 Acquired absence of other specified parts of digestive tract; Z88.1 Allergy status to other antibiotic agents; Z88.8 Allergy status to other drugs, medicaments and biological substances; Z79.899 Other long term (current) drug therapy
CPT/HCPCS: 36415; 80053; 80164; 80305; 80320; 81001; 81002; 85025; 99283

== ENCOUNTER 2025-05-15 22:08 | Emergency (ER) | payer MEDICAID ==
[~2025-05-15] VITALS: Ht 185.4 cm; Wt 79.5 kg
[2025-05-15] MEDS: normal saline 1000ML IV soln IVB ONE (22:41)
--- NOTE | 2025-05-15 22:43 | Physician Documentation ---
History of Present Illness ~ Chief Complaint: See Chief Complaint Stated Complaint: SEIZURE Time Seen by MD: 22:37 HPI Patient presents to the emergency room after seizure activity. History of seizures. He states he just ran out of his Depakote as he states we prescribed him his wrong one. Generally feeling weak. Hyperglycemia Medication Reconciliation Allergies: Coded Allergies: erythromycin base (Verified Allergy, Unknown, 05/01/25) lithium (Verified Allergy, Unknown, 05/01/25) Uncoded Allergies: BENEDRYL (Allergy, Unknown, 03/13/25) Scheduled Divalproex ER* (Depakote ER*), 1 TAB PO Q12H Divalproex Sodium DR* (Depakote DR*), 1 TAB PO BID Insulin Glargine,Hum.rec.anlog* (Lantus*), 15 UNIT SQ HS Insulin Lispro (Insulin Lispro Jacques Kwikpen), 100 UNITS SQ ACHS Prazosin HCl (Prazosin HCl), 1 CAP PO HS Quetiapine Fumarate (Seroquel), 100 MG PO HS Sodium Chloride (SODIUM CHLORIDE tablet), 1 TAB PO QID Ziprasidone Hcl (Ziprasidone Hcl), 1 CAP PO BID [gabapentin capsule], 300 MG PO BID [gabapentin capsule], 300 MG PO BID Past Medical History Past Medical History: Seizures, Diabetes, Bipolar Past Surgical History: cholecystectomy Patient History: Fibromyalgia MOTHER Vertigo MOTHER Alcohol Use: None Drug Use: none Review of Systems ROS All review of systems negative except as per HPI Physical Exam Vital Signs: Temperature: 98.7, Source: Oral, Heart Rate: 93, Respiratory Rate: 16, BP: 128/82, Pulse Oximetry: 97, Weight: 79.550 Oxygen Flow Rate: 0 Physical Exam General: Patient is awake, alert, oriented x4 in no acute distress Head: Normocephalic and atraumatic. Eyes: Conjunctival normal. EOMI. PERRL. ENT: Mucous membranes moist. Neck: Supple, trachea is midline. Chest: Clear to auscultation bilaterally without rales, rhonchi, or wheezes. There is no accessory muscle use or retractions. Cardiac: RRR without murmurs, gallops, or rubs. Abd: Soft, nondistended, nontender, with normoactive bowel sounds. No guarding, rebound, or rigidity. Progress Results/Orders Results/Orders Orders - VLAD RENDON MD Urinalysis, Cult If Indicated (05/15/25 22:38) Completed Orders - VLAD RENDON MD Cbc/Diff (05/15/25 22:38) BMP (05/15/25 22:38) Normal Saline 1000ml (0.9% Sodium Chlori (05/15/25 22:40) Potassium Cl Sr Tablet (K-Dur Tablet) (05/15/25 23:12) Insulin Regular, Human (Humulin R 10 Uni (05/15/25 23:15) Medications Received in ER Medications (Trade) Dose Ordered Sig/Misti Route PRN Reason Start Time Stop Time Status Last Admin Dose Admin (0.9% sodium chloride (NS) 1000ml IV soln) 2,000 ml ONCE ONCE IVB 05/15/25 22:40 05/15/25 22:41 DC 05/15/25 22:41 2,000 ML Vital Signs 05/15/25 05/15/25 05/15/25 22:23 23:57 23:58 Temp 98.7 Pulse 93 90 Resp 16 16 B/P (MAP) 128/82 110/73 (85) Pulse Ox 97 95 O2 Flow Rate 0 0 Laboratory Tests Test 05/15/25 22:40 05/16/25 00:37 White Blood Count 6.9 Red Blood Count 3.18 L Hemoglobin 9.0 L Hematocrit 26.0 L Mean Corpuscular Volume 81.8 Mean Corpuscular Hemoglobin 28.2 Mean Corpuscular Hemoglobin Concent 34.4 Red Cell Distribution Width 14.9 H Platelet Count 326 Mean Platelet Volume 7.4 Neutrophils (%) (Auto) 40.7 L Lymphocytes (%) (Auto) 42.0 Monocytes (%) (Auto) 11.8 Eosinophils (%) (Auto) 4.5 Basophils (%) (Auto) 1.0 Neutrophils # (Auto) 2.8 Lymphocytes # (Auto) 2.9 Monocytes # (Auto) 0.8 Eosinophils # (Auto) 0.3 Basophils # (Auto) 0.1 CBC Comment Sodium Level 132 L Potassium Level 3.8 Chloride Level 100 Carbon Dioxide Level 24.2 Anion Gap 8 Blood Urea Nitrogen 23 H Creatinine 1.38 H Estimated GFR/1.73 m2 58 BUN/Creatinine Ratio 16.7 Glucose Level 406 *H Calcium Level 8.3 L Albumin 2.3 L Chemistry Comments Glucometer 269 H Medical Decision Making Findings Patient presents to the emergency room for evaluation of seizure and hyperglycemia. Labs reviewed and there was mild hypokalemia which has been replenished. Significant hyperglycemia and after IV fluids and insulin that has greatly improved. He is not in DKA. He states he did not take his Depakote because it was not the right one therefore his changed his Depakote and hopefully he will fill and decided to take this one. The need to follow up with his doctor discussed as well as ER precautions Departure Disposition: 01 HOME / SELF CARE / HOMELESS Impression: Primary Impression: Hyperglycemia Additional Impression: Seizure Referrals: NO PRIMARY CARE PROVIDER (PCP) Prescriptions Divalproex ER* (Depakote ER*) 500 Mg Tab.sr.24h 1 TAB PO Q12H for 30 Days, #60 TAB Prov: VLAD RENDON MD 05/15/25 Signature Scribe Signature: No scribe Attestation: The note accurately reflects work and decisions made by me.Vlad Rendon MD 05/16/25 01:40 VLAD RENDON MD May 15, 2025 22:43
[2025-05-15 22:49] LABS: MEAN PLATELET VOLUME 7.4 FL (7.4-10.4); RED CELL DISTRIBUTION WIDTH 14.9 % (11.5-14.5)
[2025-05-15 23:04] LABS: CREATININE 1.38 MG/DL (0.60-1.10); TOTAL CARBON DIOXIDE 24.2 MMOL/L (24-32); eCRCL 83 ML/MIN; eGFR 58 ML/MIN
[2025-05-15] MEDS ORDERED: DIVA500T9 PO (23:17)
[2025-05-16] MEDS: potassium Cl 20 mEq SR tablet PO STA (01:43)
[2025-05-16] MEDS: insulin regular, human 10 units/0.1 ml syringe IV ONE (01:45)
[2025-05-16 06:21] VITALS: BP 124/72; PULSE 89; RESP 16; TEMP 98.7; O2SAT 98
== END 2025-05-16 06:34 | disposition home or self-care (01) ==
LOC: ER 22:09
DX: E11.65 Type 2 diabetes mellitus with hyperglycemia (principal); R56.9 Unspecified convulsions; M79.7 Fibromyalgia; F31.9 Bipolar disorder, unspecified; Z88.1 Allergy status to other antibiotic agents; Z88.8 Allergy status to other drugs, medicaments and biological substances; Z90.49 Acquired absence of other specified parts of digestive tract
CPT/HCPCS: 36415; 80048; 82948; 85025; 96361; 96374; 99285; J1815; J7030

== ENCOUNTER 2025-06-19 19:40 | Emergency (ER) | payer MEDICAID ==
[~2025-06-19] VITALS: Ht 182.9 cm; Wt 86.4 kg
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
[2025-06-19] MEDS: LIDOcaine/epinephrine/tetracaine TOPICAL sol 3 ML syringe TOP ONE (22:30)
--- NOTE | 2025-06-19 23:22 | RADIOLOGY REPORT ---
EXAM: CT CT HEAD INDICATION: fall TECHNIQUE: CT of the head without intravenous contrast. Radiation Dose Information: CT Dose: CTDI volume is 63.92 mGy. Dose-length product is 1397.33 mGy*cm The dose indicators for CT are the volume Computed Tomography (CT) Dose Index (CTDIvol) and the Dose Length Product (DLP), and are measured in units of mGy and mGy-cm, respectively. These indicators are not patient dose, but values generated from the CT scanner acquisition factors. The report includes radiation exposure data for exposures received during this examination. COMPARISON: CT CT HEAD on DOS: 03/22/25, CT CT HEAD on DOS: 03/13/25 FINDINGS: Motion artifact degrades fine detail. There is thin hyperdense extra-axial hematoma contouring the left inferior frontal convexity, measuring up to 4 mm in greatest thickness with mild mass effect upon the underlying cerebrum. Unchanged appearance of the ventricular system. No acute infarct. Probable left anterior temporal arachnoid cyst. The orbits are normal. There is mild mucosal thickening within the left maxillary antrum. The soft tissues and osseous structures appear within normal limits. IMPRESSION: 1. Thin acute extra-axial hematoma contouring the left inferior frontal convexity with minimal mass effect. Critical Result: Intracranial hemorrhage Findings discussed with VLAD SLATER at 06/19/2025 11:19 PM, and acknowledged receipt and understanding of the findings.
[2025-06-19 23:51] LABS: MEAN PLATELET VOLUME 7.1 FL (7.4-10.4); RED CELL DISTRIBUTION WIDTH 15.2 % (11.5-14.5)
[2025-06-20 00:02] LABS: APTT 26 SECONDS (22-32); INR 1.0 INR
[2025-06-20 00:07] LABS: CREATININE 1.14 MG/DL (0.60-1.10); ETHANOL < 10 MG/DL (<10); TOTAL CARBON DIOXIDE 26.6 MMOL/L (24-32); eCRCL 98 ML/MIN; eGFR 73 ML/MIN
[2025-06-20] MEDS: ondansetron 4mg rapidly disintigrating tab PO ONE (00:09)
[2025-06-20] MEDS: amox tr/potassium clavulanate 875/125mg TAB PO ONE (00:09)
[2025-06-20 00:20] VITALS: BP 157/95; PULSE 102; RESP 18; TEMP 98.8; O2SAT 96
== END 2025-06-20 00:18 | disposition hospice, inpatient (51) ==
LOC: ER 19:40
DX: S01.511A Laceration without foreign body of lip, initial encounter (principal); M79.7 Fibromyalgia; E11.9 Type 2 diabetes mellitus without complications; F31.9 Bipolar disorder, unspecified; Z90.49 Acquired absence of other specified parts of digestive tract; Z88.1 Allergy status to other antibiotic agents; Z88.8 Allergy status to other drugs, medicaments and biological substances; Z79.899 Other long term (current) drug therapy; Z79.4 Long term (current) use of insulin; W18.30XA Fall on same level, unspecified, initial encounter; Y93.89 Activity, other specified; Y92.89 Other specified places as the place of occurrence of the external cause; Y99.8 Other external cause status
CPT/HCPCS: 36415; 40650; 70450; 80048; 80320; 82550; 85025; 85610; 85730; 86885; 86900; 86901; 99291; J3490; J7030; A6449